=== PATIENT | male | born 1980 | race Caucasian/White ===

== ENCOUNTER 2017-02-22 17:36 | Emergency (ER) | payer SELFPAY ==
[~2017-02-22] VITALS: Ht 180.3 cm; Wt 103.1 kg
[~2017-02-22 17:36] MED LIST: ATARAX,VISTARIL25 MG PO; DIOVAN HCT 11 TABLE1 PO; LEXAPRO10 MG PO; LEXAPRO20 MG PO; MOTRIN800 MG PO; PERCOCET 5/31 TABLET PO; XANAX0.25 MG PO; ZOFRAN4 MG PO
[2017-02-22 21:17] LABS: HEMATOCRIT 48.2 % (38.0-50.0); MCH 29.5 PG (29.0-34.0); MCHC 33.8 G/DL (30.0-36.0); MCV 87.3 FL (86-99); MEAN PLAT.VOLUME 12.2 uM^3 (9.0-12.4); PLATELET COUNT 95 K/uL (156-360); RBC DIS.WIDTH-CV 12.9 % (11.8-14.6); RBC DIS.WIDTH-SD 41.1 % (39-53); RED BLOOD COUNT 5.52 M/uL (4.00-5.50); WHITE BLOOD COUNT 10.1 K/uL (4.1-10.2)
[2017-02-22 21:25] LABS: CHLORIDE 103 mEq/L (99-109); POTASSIUM 4.3 mEq/L (3.7-5.4); SODIUM 138 mEq/L (136-147)
[2017-02-22 21:27] LABS: GLUCOSE 124 mg/dL (70-99)
[2017-02-22 21:28] LABS: ANION GAP 11 MEQ/L (2-14)
[2017-02-22 21:29] LABS: TOTAL BILIRUBIN 0.6 mg/dL (0.0-1.0)
[2017-02-22 21:30] LABS: ALKALINE PHOSPHATASE 75 IU/L (3-129)
[2017-02-22 21:31] LABS: GFR ESTIMATE (CALCULATED) > 59 mL/min/
[2017-02-22 21:32] LABS: UREA NITROGEN (BUN) 15 mg/dL (9-23)
[2017-02-22 22:08] LABS: TROP-I INTERPRETATION NEGATIVE; TROPONIN-I < 0.01 ng/mL (0.0-0.30)
[2017-02-22] MEDS ORDERED: METOPROLOL TART25 MG PO (22:38)
[2017-02-22 23:03] VITALS: BP 150/105
== END 2017-02-22 23:00 | disposition home or self-care (01) ==
LOC: EME 17:36
PROVIDERS: Emergency Medicine; Physician Assistant
DX: R07.9 Chest pain, unspecified (principal); R51 Headache; I10 Essential (primary) hypertension; F41.9 Anxiety disorder, unspecified; Z82.49 Family history of ischemic heart disease and other diseases of the circulatory system; F17.200 Nicotine dependence, unspecified, uncomplicated
CPT/HCPCS: 71020; 80053; 81003; 84484; 85027; 93005; 99281; 99284; J1885